=== PATIENT | male | born 1940 | race Caucasian/White ===

== ENCOUNTER 2017-08-18 09:45 | Outpatient (CLI) | payer MEDICARE, MEDICAID ==
--- NOTE | 2017-08-18 17:23 | PET ---
PET CT FROM SKULL BASE THROUGH MID THIGH 08/18/17 INDICATION: History of left lower lobe small cell carcinoma. RADIOPHARMACEUTICAL: 11.04 millicuries of F18 FDG IV. TECHNIQUE: PET CT images were obtained from the skull base through the mid thighs following IV administration o f the radiopharmaceutical. Comparisons are made with the CT of the thorax from [facility] dated 04/02/17 and . FINDINGS: No hypermetabolic head and neck lymph node or soft tissue mass is evident. There is ill-defined spiculated density seen within the left suprahilar region that appears less pro minent than on the comparison CT. The previously seen 9 x 5 mm nodule in the left upper lobe is no l onger demonstrated. This ill-defined soft tissue thickening involving the left suprahilar region dem onstrates some mild FDG uptake with a peak uptake of 2.36 and mean uptake of 1.95. No tom hypermet abolic lymph node, pleural effusion or pulmonary nodules identified. There are numerous scattered calcified granuloma within the spleen and liver. No hypermetabolic mass or lymphadenopathy is identified. There is scattered colonic diverticula. No hypermetabolic ascites is present. No hypermetabolic skin or osseous lesion is identified. IMPRESSION: 1. Ill-defined soft tissue density seen within the left suprahilar region within the region of the previously seen enlarged left suprahilar mass noted on the comparison CT of 04/02/17. No hypermeta bolic activity is associated with this area. Findings likely reflect sequela from prior therapy. Con tinued followup is recommended. 2. No evidence of hypermetabolic metastatic disease within the head and neck region, abdomen a nd pelvis or skin and osseous structures. POS: [facility]
== END 2017-08-18 09:46 | disposition home or self-care (01) ==
LOC: PET 09:45
PROVIDERS: ATTEND Radiology Radiation Oncology
DX: C34.12 Malignant neoplasm of upper lobe, left bronchus or lung (principal)
CPT/HCPCS: 78815; A9552

== ENCOUNTER 2018-07-25 10:26 | Emergency (ER) | payer MEDICARE, OTHER ==
[2018-07-25] MEDS ORDERED: ISOVUE-370 76%-LOCM 1 ML ONE (11:12)
[2018-07-25 11:46] LABS: #Eosinphils 0.1 thou/uL (0.0-0.7); #Monocytes 0.9 thou/uL (0.11-0.59); #Neutrophils 6.5 thou/uL (1.40-6.50); %Basophils 0.2 % (0.0-1.0); %Eosinophils 0.8 % (0.0-10.0); %Lymphocytes 11.2 % (21.0-51.0); %Neutrophils 76.7 % (42.0-75.0); Hemoglobin 13.2 g/dL (14.0-18.0); Mean Corpuscular HGB CONC 32.8 g/dL (32.0-36.0); Mean Corpuscular Hemoglobin 30.7 pg (27.0-31.0); Mean Corpuscular Volume 93.7 fL (78.0-98.0); Mean Platelet Volume 5.3 fL (7.4-10.4); Platelet Count 396 thou/uL (130-400); RBC Distribution Width 11.4 % (11.5-14.5); Red Blood Cell (RBC) Count 4.28 mill/uL (4.70-6.10); White Blood Cell (WBC) Count 8.5 thou/uL (4.8-10.8)
[2018-07-25 12:08] LABS: ALT (SGPT) 8 U/L (8-55); AST (SGOT) 17 U/L (5-34); Albumin 4.1 g/dL (3.4-4.8); Alkaline Phosphatase 74 U/L (40-150); Anion Gap 15 mmol/L (10-20); BUN (Urea Nitrogen) 13 mg/dL (8.4-25.7); Bilirubin, Total 0.6 mg/dL (0.2-1.2); CK (CPK) 92 U/L (30-200); Calc. Creatinine Clearance 0 mL/min (70-130); Calcium 9.8 mg/dL (7.8-10.44); Carbon Dioxide 27 mmol/L (23-31); Chloride 92 mmol/L (98-107); Estimated GFR-MDRD 82; Globulin 3.2 g/dL (2.4-3.5); Glucose 99 mg/dL (83-110); Lipase 17 U/L (8-78); Potassium 3.7 mmol/L (3.5-5.1); Protein, Total 7.3 g/dL (5.8-8.1); Sodium 130 mmol/L (136-145)
[2018-07-25 12:13] LABS: CKMB 2.8 ng/mL (0-6.6); Troponin I Less than 0.010 ng/mL (< 0.028)
--- NOTE | 2018-07-25 12:43 | RAD ---
LEFT SHOULDER 3 VIEWS: Date: 07/25/18 HISTORY: Left shoulder pain. Trauma. History of breaking left collarbone many years ago. Left lung cancer. FINDINGS/IMPRESSION: There is a fracture of the shaft of the left clavicle, which is old and was seen on the chest x-ray o f 04/01/17. No acute fracture or dislocation is identified. POS: [facility]
--- NOTE | 2018-07-25 14:24 | CT ---
CONTRAST ENHANCED CTA CHEST: Date: 07/25/18 HISTORY: Left arm pain and and arm swelling COMPARISON: Comparison made to CT contrast enhanced chest from 06/09/17. TECHNIQUE: Contrast enhanced CTA chest performed. 2D and 3D reconstructed images performed on an independent 3D workstation. FINDINGS: Images demonstrate a soft tissue left upper lobe apical mass enveloping the left brachiocephalic diana ry and left vertebral artery. There is a left hilar and aortopulmonary window mass extending into the left hilar region and abutting and extending into the upper margin of the pericardium. The mass exte nds and involves the majority of the left upper lobe parenchyma resulting in some volume loss in the left upper lobe. Extensive coronary artery calcifications seen. Some anterior mediastinal lymphadenopathy also seen. T hese were not present on the patient's previous CT contrast enhanced chest from 06/09/17. Some mild p retracheal lymphadenopathy seen. Marked subcarinal lymphadenopathy also seen. A small pericardial effusion is seen. The right lung is well aerated. There is development of extensive left upper extremity collaterals involving the anterior and posteri or chest wall. This is concerning for occlusion of the left subclavian vein due to the large left api jacqueline mass. IMPRESSION: 1. 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 Does t he patient have any left brachial plexus symptoms? 2. Extensive mediastinal, left hilar, anterior mediastinal, and subcarinal masses concerning for mal ignancy. There is extensive interval development of soft tissue density in the left upper lobe. 3. 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 POS: [facility]
--- NOTE | 2018-07-31 17:37 | EKG ---
Test Reason : Blood Pressure : / mmHG Vent. Rate : 094 BPM Atrial Rate : 094 BPM P-R Int : 154 ms QRS Dur : 072 ms QT Int : 348 ms P-R-T Axes : 049 049 047 degrees QTc Int : 435 ms Normal sinus rhythm T wave abnormality, consider anterior ischemia Abnormal ECG Confirmed by GOPI MCMAOHN, BRANDON ([id number]), medical transcription editor FADI CORDOVA ([id number]) on 07/31/2018 5:36:45 PM Referred By: Confirmed By:BRANDON NGUYỄN MD
== END 2018-07-25 14:34 | disposition home or self-care (01) ==
LOC: ERS 10:26
DX: S46.912A Strain of unspecified muscle, fascia and tendon at shoulder and upper arm level, left arm, initial encounter (principal); J90 Pleural effusion, not elsewhere classified; C34.90 Malignant neoplasm of unspecified part of unspecified bronchus or lung; F17.210 Nicotine dependence, cigarettes, uncomplicated; Z79.82 Long term (current) use of aspirin; W22.03XA Walked into furniture, initial encounter
CPT/HCPCS: 71275; 80053; 82553; 83690; 83880; 84484; 85025; 93005